=== PATIENT | female | born 1990 | race African-American/Black ===

== ENCOUNTER 2023-12-01 19:15 | Emergency (ER) | payer MEDICAID ==
[~2023-12-01] VITALS: Ht 162.6 cm; Wt 52.0 kg
[2023-12-01 20:05] VITALS: O2SAT 99
[2023-12-01] MEDS ORDERED: IBUP-2029 PO (21:01)
[2023-12-01 21:15] VITALS: BP 110/68; PULSE 68; RESP 19; TEMP 98.7
[2023-12-01] MEDS: LIDOCAINE HCL/PF 1% 10 MG/ML 5ML VIAL INFIL ONE (21:15)
[2023-12-01] MEDS: BACITRACIN ZINC OINT UDPKT TOP ONE (21:15)
== END 2023-12-01 21:16 | disposition home or self-care (01) ==
LOC: ER 19:39
DX: S61.011A Laceration without foreign body of right thumb without damage to nail, initial encounter (principal); F12.10 Cannabis abuse, uncomplicated; X58.XXXA Exposure to other specified factors, initial encounter; Y93.89 Activity, other specified; Y92.89 Other specified places as the place of occurrence of the external cause; Y99.8 Other external cause status
CPT/HCPCS: 99282; J3490; Z7610 ×2

== ENCOUNTER 2024-09-26 10:44 | Emergency (ER) | payer MEDICAID ==
[~2024-09-26] VITALS: Ht 162.6 cm; Wt 49.9 kg
[~2024-09-26 10:44] MED LIST: IBUP-2029 PO
[2024-09-26] MEDS: ACETAMINOPHEN 325MG TABLET PO ONE (14:13)
[2024-09-26 14:15] VITALS: PULSE 78; RESP 16; O2SAT 98
[2024-09-26] MEDS: IPRATROPIUM/ALBUTEROL 0.5-3(2.5)MG/3ML NEB HHN ONE (14:36)
[2024-09-26] MEDS ORDERED: ALBU18HF2 IH (16:00)
[2024-09-26] MEDS ORDERED: ALBU2.5V13 NEB (16:31)
[2024-09-26 16:33] VITALS: BP 118/83; PULSE 95; RESP 18; TEMP 37.78080; O2SAT 98
== END 2024-09-26 16:35 | disposition home or self-care (01) ==
LOC: ER 10:44
DX: R07.89 Other chest pain (principal); F12.90 Cannabis use, unspecified, uncomplicated; Z20.822 Contact with and (suspected) exposure to COVID-19
CPT/HCPCS: 81025; 87420; 87804 ×2; 71045; 94640; 93005; 99285; 87426; Z7610 ×3